=== PATIENT | male | born 1975 ===

== ENCOUNTER 2025-05-29 16:21 | Emergency (ER) | payer OTHER ==
[~2025-05-29] VITALS: Ht 167.6 cm; Wt 95.3 kg
[2025-05-29 16:22] VITALS: BP 180/112
[2025-05-29] MEDS ORDERED: KETOROLAC TROMETHAMINE 15 MG INJ IM ONE (17:15)
[2025-05-29] MEDS ORDERED: SULFAMETH/TRIMETH 800/160 MG TABLET PO ONE (17:15)
[2025-05-29] MEDS ORDERED: CEPH500T PO (17:19)
[2025-05-29 17:28] VITALS: BP 159/99; TEMP 98; O2SAT 96
== END 2025-05-29 17:29 | disposition home or self-care (01) ==
LOC: ER 16:40
DX: L03.211 Cellulitis of face (principal); J45.909 Unspecified asthma, uncomplicated
CPT/HCPCS: A4606; A4663